=== PATIENT | female | born 1960 | race Caucasian/White ===

== ENCOUNTER 2018-01-17 08:50 | Emergency (ER) | payer MEDICARE, OTHER ==
--- NOTE | 2018-01-17 09:05 | ED Physician Documentation ---
Lower Extremity Problem - HPI Stated Complaint: right knee pain Chief Complaint: Lower Extremity Problem Additional Information: Patient presents to ED via EMS from nursing facility with right knee pain. Patient called 911 from nursing facility after nursing staff would not give her Tramadol 100mg every 12 hours as it was too early for her noon dose this morning. Patient had knee surgery 2 months ago, scars consistent with a total knee. Post op she had dilaudid, however, that was discontinued a week after surgery. Now tramadol is prescribed 100mg every 12 hours with Tylenol in between. Patient states the tylenol does nothing for her pain. She rates her pain dull aching with occasional sharp pain, 12/16. Location of Injury: R knee Onset: hours (12) Timing: still present Recent Injury: Yes Where: other (nursing facility) Severity: mild Quality: pain (dull achy ). denies: swelling, tenderness Exacerbated By: movement Relieved By: nothing Associated Symptoms: denies: chest pain, shortness of breath, rapid heart rate - ROS CONST: denies: fever MS/SKIN/LYMPH: denies: calf pain, leg swelling CVS/RESP: denies: chest pain, shortness of breath GI/: none EYES/ENT: none NERUO/PSYCH: denies: headache - PAST HX Past History: denies: back injury PE Risk Factors: hypertension. denies: leg swelling Other History: cardiac disease, CAD Surgeries/Procedures: cardiac stent Allergies/Adverse Reactions: Allergies Allergy/AdvReac Type Severity Reaction Status Date / Time doxycycline Allergy Verified 02/11/14 17:37 Penicillins Allergy Verified 02/11/14 17:37 Home Medications: Ambulatory Orders Medication Instructions Recorded Aspirin [Nilson] 81 mg PO D 01/13/14 Acetaminophen [Tylenol] 650 mg PO Q4 PRN 01/17/18 Albuterol Sulfate [Proair Hfa] 2 puff IH Q2H PRN 01/17/18 Atorvastatin Calcium [Lipitor] 80 mg PO HS 01/17/18 Carvedilol [Coreg] 6.25 mg PO BS 01/17/18 Famotidine [Pepcid] 20 mg PO DAILY 01/17/18 Fluoxetine HCl [Prozac] 30 mg PO DAILY 01/17/18 Gabapentin 200 mg PO TID 01/17/18 Ipratropium/Albuterol Sulfate 3 ml NEB Q4 PRN 01/17/18 [Duoneb] Lisinopril 2.5 mg PO DAILY 01/17/18 Methylprednisolone [Medrol] 4 mg PO DIRECTED #1 tab.ds.pk 01/17/18 Ondansetron HCl Rapdis [Zofran Odt] 4 mg PO Q6 PRN 01/17/18 Pnv No.95/Ferrous Fum/Folic AC 1 each PO DAILY 01/17/18 [ Vitamin Tablet] Sucralfate [Carafate] 1 tab PO ACHS 01/17/18 Sulfamethoxazole/Trimethoprim 1 each PO BID 01/17/18 [Bactrim Ds] traMADol HCL [Ultram] 50 mg PO TID PRN #15 tablet 01/17/18 traMADol HCL [Ultram] 100 mg PO Q12H PRN 01/17/18 - SOCIAL HX Smoking History: cigarettes, greater than 1 pack/day Alcohol Use: none Drug Use: none - FAMILY HX Family History: none - VITAL SIGNS Vital Signs: Vital Signs Temp Pulse Resp BP Pulse Ox 97.8 F 93 H 20 121/78 96 01/17/18 08:55 01/17/18 08:55 01/17/18 08:55 01/17/18 08:55 01/17/18 08:55 - REVIEWED ASSESSMENTS Nursing Assessment Reviewed: Yes Vitals Reviewed: Yes ED Results Lab/Radiology - Radiology Radiology Impressions: HISTORY: 57-year-old female fell and complains of right knee pain. COMPARISON: None available. TECHNIQUE: 3 views of the right knee were performed. IMPRESSION: 1. No acute fracture of the right knee. 2. Postoperative changes of tension band wire fixation of the patella. 3. Probable moderate joint effusion. 4. Prominence of the soft tissues inferior to the patella may be due to patellar tendonitis or prepatellar bursitis. Electronically signed on Jan 17, 2018 9:21:45 AM INSTRUCTION DEAN by: Ash Perez - Orders Orders: ED Orders Category Date Time Status KNEE 3 VIEWS [RAD] Stat Exams 01/17/18 Completed methylPREDNISolone SOD SUCC [Solu-MEDROL] Med 01/17/18 09:23 Discontinued 125 mg IM NOW ONE traMADol HCL [Ultram] Med 01/17/18 09:13 Discontinued 50 mg PO NOW ONE Lower Extremity Problem - EXAM General Appearance: no distress Knees: right: non-tender, normal inspection, normal range of motion, no evidence of injury Neuro/Tendon: normal sensation EENT: eye inspection normal, KIMBERLY RESPIRATORY: no resp distress, breath sounds normal CVS: reg rate & rhythm, heart sounds normal JOINT: joints nml, Nml gait/weight bearing VASCULAR: no vascular compromise NEURO/PSYCH: oriented X3 SKIN: warm/dry BACK: normal inspection Discharge Clincal Impression: Patellar bursitis of right knee Prescriptions: Methylprednisolone [Medrol] 4 mg PO DIRECTED #1 tab.ds.pk traMADol HCL [Ultram] 50 mg PO TID PRN #15 tablet PRN Reason: Pain Referrals: Vj Chandler MD [Primary Care Provider] - 2 Days Condition: Stable Disposition: 04 [facility] [employer] [facility] Decision to Admit: NO Date of Decison to Admit: 01/17/18 Decision Time: 09:40
[2018-01-17] MEDS ORDERED: traMADol HCL 50 MG TABLET PO ONE (09:13)
[2018-01-17] MEDS ORDERED: methylPREDNISolone SOD SUCC 125 MG/2 ML VIAL IM ONE (09:23)
--- NOTE | 2018-01-17 09:38 | Diagnostic Imaging Report ---
ALON SONG [facility] [id number] [facility] [address] [place] [id number] Report Submission Date: Jan 17, 2018 9:21:45 AM ASSOCIATE PROFESSOR OF PSYCHOLOGY Patient Study Name: SORAYA URBANO Date: Jan 17, 2018 8:59:27 AM ASSOCIATE PROFESSOR OF PSYCHOLOGY Modality Type: DX Gender: F Description: LOWER EXTREMITY : 58 Institution: [facility] Physician: ALON SONG HISTORY: 57-year-old female fell and complains of right knee pain. COMPARISON: None available. TECHNIQUE: 3 views of the right knee were performed. IMPRESSION: 1. No acute fracture of the right knee. 2. Postoperative changes of tension band wire fixation of the patella. 3. Probable moderate joint effusion. 4. Prominence of the soft tissues inferior to the patella may be due to patellar tendonitis or prepatellar bursitis. Electronically signed on Jan 17, 2018 9:21:45 AM ASSOCIATE PROFESSOR OF PSYCHOLOGY by: Ash FARIA
[2018-01-17 10:13] VITALS: BP 118/68
== END 2018-01-17 10:00 ==
LOC: ED 08:50
DX: M70.51 Other bursitis of knee, right knee (principal); F17.200 Nicotine dependence, unspecified, uncomplicated
CPT/HCPCS: 73562; 96372; 99283; J2930